=== PATIENT | female | born 1970 | race Caucasian/White ===

== ENCOUNTER 2020-11-05 12:49 | Outpatient (CLI) | payer BC ==
--- NOTE | 2020-11-05 14:40 | ULT ---
ULTRASOUND THYROID STANDARD: History: Thyroid nodule. Comparison: None. Findings: Real-time grayscale and color evaluation of the thyroid was performed. Isthmus measures 3 mm in AP dimension. Right lobe measures 5.2 x 1.9 x 2.2 cm and the left lobe measu res 4.8 x 1.7 x 1.6 cm. In the right lobe near the isthmus is a solid hypoechoic wider than tall nodule measuring up to 8 mm in size with well-defined margins and absent echogenic foci. Nodule is TIRADS 4: Moderately suspicious. Given its small size, no aspiration or followup is required. In the left lobe interpolar region is a solid isoechoic wider than tall nodule measuring up to 1.1 cm with well-defined margins and absent echogenic foci. This nodule is TIRADS 3: Mildly suspicious. No aspiration or follow-up is required. Just caudal to the former nodule is a solid hypoechoic wider than tall nodule measuring up to 7 mm wi thout echogenic foci. Nodule is TIRADS 4: Moderately suspicious. Given its small size, no aspiration or followup is required. At the inferior left lobe is a spongiform nodule measuring up to 8mm for which no aspiration or follo w-up is required. Impression: Multiple thyroid nodules which do not require aspiration or followup per TIRADS criteria. Transcribed Date/Time: 11/05/2020 2:59 PM
== END 2020-11-05 12:50 | disposition home or self-care (01) ==
LOC: BICULT 12:49
PROVIDERS: ATTEND Family Medicine
DX: E04.2 Nontoxic multinodular goiter (principal)
CPT/HCPCS: 76536

== ENCOUNTER 2021-02-06 07:25 | Day surgery (SDC) | payer BC ==
[2021-02-05 10:48] VITALS: BMI 25.1
[2021-02-06] MEDS ORDERED: Lidocaine 1% w/Epinephrine 1:100K 20 ML VIAL ONE (09:18)
[2021-02-06] MEDS ORDERED: Bupivacaine PF 0.5% 30 ML VIAL ONE (09:18)
[2021-02-06] MEDS ORDERED: Fentanyl 100 MCG/2 ML VIAL ONE ×3 (09:23→11:45)
[2021-02-06] MEDS ORDERED: Midazolam HCl 2 mg/2 ml Vial ONE (09:30)
[2021-02-06] MEDS ORDERED: PROPOFOL 200 MG/20 ML VIAL ONE (09:40)
[2021-02-06] MEDS ORDERED: Ondansetron PF 4 MG/2 ML Vial ONE (09:40)
[2021-02-06] MEDS ORDERED: Dexamethasone 20 MG/5 ML VIAL ONE (09:40)
[2021-02-06] MEDS ORDERED: Ketorolac Tromethamine 30 MG/ML VIAL ONE (09:40)
[2021-02-06] MEDS ORDERED: HYDROcodone/Acetaminophen 5/325 mg Tablet ONE (11:47)
[2021-02-06] MEDS ORDERED: Morphine 4 MG/ML VIAL ONE (12:15)
== END 2021-02-06 14:00 | disposition home or self-care (01) ==
LOC: SDC 07:25
PROVIDERS: ATTEND Orthopaedic Surgery
PROC: 0LN30ZZ Release Right Upper Arm Tendon, Open Approach (ICD-10-PCS; principal; 2021-02-06)
PROC: 01N40ZZ Release Ulnar Nerve, Open Approach (ICD-10-PCS; principal; 2021-02-06)
PROC: 0JBD0ZZ Excision of Right Upper Arm Subcutaneous Tissue and Fascia, Open Approach (ICD-10-PCS; principal; 2021-02-06)
PROC: 01N50ZZ Release Median Nerve, Open Approach (ICD-10-PCS; principal; 2021-02-06)
DX: G56.21 Lesion of ulnar nerve, right upper limb (principal); M77.11 Lateral epicondylitis, right elbow; G56.01 Carpal tunnel syndrome, right upper limb; Z79.899 Other long term (current) drug therapy; Z88.8 Allergy status to other drugs, medicaments and biological substances
CPT/HCPCS: J0690; J1100; J1885; J2250; J2270; J2405; J2704; J3010; S0020